=== PATIENT | male | born 1960 | race Caucasian/White ===

== ENCOUNTER 2016-12-13 16:08 | Emergency (ER) | payer SELFPAY ==
[~2016-12-13] VITALS: Ht 167.6 cm; Wt 76.0 kg
[2016-12-13 16:10] VITALS: Ht 167.6 cm; Wt 76.0 kg
--- NOTE | 2016-12-13 18:12 | ERA ---
ER Documentation Chief Complaint Date/Time DATE: 12/13/16 TIME: 18:10 Chief Complaint Dizziness HPI The patient is a 56-year-old male, presenting to the ER because of dizziness, he feels as if the room was spinning yesterday, associated with vomiting mostly mucus. He denies any dizziness now, had similar symptoms previously, denies headache, facial pain, neck pain, chest pain, dyspnea, abdominal pain, vomiting , dysuria, diarrhea, constipation. He does not smoke or drink Past medical history/surgical history: None ROS All systems reviewed and are negative except as per history of present illness. Medications Home Meds Active Scripts Carbamide Peroxide* (Debrox*) 6.5% -15 Ml Drops, 10 DROP BOTH EARS BID, #10 EA Prov:URBANO HERNANDEZ MD 12/13/16 Meclizine Hcl* (Antivert*) 12.5 Mg Tab, 25 MG PO Q6H Y for DIZZINESS, #20 TAB Prov:URBANO HERNANDEZ MD 12/13/16 Allergies Allergies: Coded Allergies: No Known Allergy (Unverified , 12/13/16) Physical Exam Vitals Vital Signs Date Time Temp Pulse Resp B/P Pulse Ox O2 Delivery O2 Flow Rate FiO2 12/13/16 16:10 98.7 76 16 166/80 97 Physical Exam Const: No acute distress. Head: Atraumatic. Eyes: Normal Conjunctiva. ENT: Normal External Ears, Nose and Mouth. Bilateral tympanic membranes are obscured with moderate amount of cerumens Neck: Full range of motion. No meningismus. Resp: Clear to auscultation bilaterally. Cardio: Regular rate and rhythm. Abd: Soft, non distended, normal bowel sounds, non tender. Skin: No petechiae or rashes. Back: No midline or flank tenderness. Ext: No cyanosis, or edema. Neur: Awake and alert. No focal deficit Psych: Normal Mood and Affect. Procedures/MDM EKG: Read by emergency physician Rate/Rhythm: Normal Sinus Rhythm 61 beats/min QRS, ST, T-waves: No ST elevation, no T inversion Impression: Normal EKG MEDICAL MAKING DECISION: The patient is a 56-year-old male, presenting to the ER because of acute dizziness, most likely acute benign positional vertigo. He is without any symptoms at the moment The differential diagnoses considered include but are not limited to central causes such as cerebellar infarct, cerebellar hemorrhage, cerebellar tumor, acoustic neuroma, peripheral causes such as benign positional vertigo, labyrinthitis, medication, Meniere's disease. Departure Diagnosis: Primary Impression: Dizziness Condition: Good Comments He was discharged with Antivert and Debrox I discussed the findings with the patient. I advised the patient to follow-up with the primary physician in about 1-2 days, sooner if needed and return if any concern. The patient's blood pressure was elevated (>120/80) but appears stable without evidence of hypertension emergency or urgency. The patient was counseled about the risks of hypertension and urged to pursue outpatient monitoring and therapy within a week with their primary care physician. URBANO HERNANDEZ MD Dec 13, 2016 18:12
[2016-12-13] MEDS ORDERED: MECL12.574 PO (18:34)
[2016-12-13] MEDS ORDERED: DEBROX BOTH EARS (18:36)
[2016-12-13 19:11] VITALS: BP 170/82; PULSE 80; RESP 16
== END 2016-12-13 19:11 | disposition home or self-care (01) ==
LOC: FTE 16:08
DX: R42 Dizziness and giddiness (principal)
CPT/HCPCS: 93005